=== PATIENT | male | born 1970 | race Caucasian/White ===

== ENCOUNTER 2019-10-24 07:23 | Emergency (ER) | payer SELFPAY ==
--- NOTE | ~2019-10-24 | CT_ITS ---
EXAMINATION: CT abdomen pelvis wo con DATE: 10/24/2019 08:08 INDICATION: Left flank pain TECHNIQUE: Computed tomography (CT) of the abdomen and pelvis was performed without intravenous contr ast. Automated exposure control and iterative reconstruction technique were employed. The dose-length product was 174.10 mGy-cm. COMPARISON: None FINDINGS: Calcified nodule in the left lower lobe consistent with old granulomatous disease. Minimal bibasilar atelectasis. Heart size is normal. No pericardial or pleural effusion. Liver, gallbladder, spleen, pa ncreas, bilateral adrenal glands and kidneys are normal. No hydronephrosis or renal stones at the [facility]. Multiple small calcifications in the pelvis bilaterally which appear to extend along the iliac arteries most likely atherosclerotic. There are few additional phleboliths in the pelvis. No definiti ve calcific a cyst along the course of the ureters which are unable to be definitively identified maryann ng much of their course. Normal appendix. No bowel obstruction. Bladder is normal. No free intraperit hernandez gas or fluid. No pathologically enlarged abdominal or pelvic lymphadenopathy. IMPRESSION: 1. No acute intra-abdominal/pelvic process. Reviewed, dictated and finalized at location A. END TECHNICIAN
--- NOTE | 2019-10-24 07:39 | ED.ABDPAIN ---
HPI - Abdominal Pain General Chief Complaint: Abdominal Pain Stated Complaint: ?? kidney stone Time Seen by Provider: 10/24/19 07:28 History of Present Illness HPI narrative: Left flank pain since early this morning. Severe. Paroxysmal. Radiates into LUQ. Associated with mild dysuria and 2 episodes of vomiting. Had a similar episode last week, which resolved spontaneously. He has had kidney stones in the past which felt similar. No trauma, fever, diarrhea, hematuria. Related Data Allergies Allergy/AdvReac Type Severity Reaction Status Date / Time codeine Allergy Rash Verified 10/24/19 07:57 Penicillins Allergy Anaphylactic Verified 10/24/19 07:57 Shock Review of Systems Review of Systems: All systems reviewed & are unremarkable except as noted in HPI and below Constitutional: Constitutional: Denies chills and Denies fever(s) ENT: Denies dizziness Cardiovascular: Cardiovascular: Denies chest pain Respiratory: Respiratory: Denies dyspnea Gastrointestinal: Gastrointestinal: Reports abdominal pain, Denies constipation, Denies diarrhea and Reports vomiting Genitourinary: Genitourinary: Denies hematuria and Reports dysuria Musculoskeletal: Musculoskeletal: Reports back pain Neurologic: Denies weakness [facility] Past Medical History Medical History (Updated 10/24/19 @ 09:30 by Norm Jang MD) Kidney stone Social History Social History Gender identity (if verbalized by the patient): Male Exam Const: General: alert Nutritional Appearance: thin Orientation/consciousness: patient oriented x3 HENMT: Head: normal to inspection Resp: Effort & Inspection: normal respiratory effort Auscultation: clear to auscultation bilaterally Cardio: Rate: regular rate Rhythm: regular rhythm GI: GI Palp: Yes Soft to palpation and No Tenderness to palpation present (GI) Back/Spine/Pelvis: Back: CVA tenderness (left) Thoracic/Lumbar Spine: paraspinal muscle tenderness on the left in the mid lumbar Neuro: General: patient oriented x3 and moves all extremities Speech: normal speech Extrem: General: normal to inspection Course Vital Signs Vital signs: Vital Signs Temperature 36.4 C 10/24/19 07:40 Pulse Rate 61 10/24/19 07:40 Respiratory Rate 17 10/24/19 07:40 Blood Pressure 142/93 H 10/24/19 07:40 Pulse Oximetry 98 10/24/19 07:40 Temperature 36.4 C 10/24/19 07:40 Pulse Rate 62 10/24/19 09:41 Respiratory Rate 14 10/24/19 09:41 Blood Pressure 121/82 10/24/19 09:41 Pulse Oximetry 97 10/24/19 09:41 MDM - Abdominal Pain Lab Data Result diagrams: 10/24/19 08:00 10/24/19 08:00 Labs: Lab Results 10/24/19 10/24/19 10/24/19 Range/Units 08:00 08:00 08:17 WBC 10.8 H (4.5-10.0) K/mm3 RBC 5.20 (4.6-6.20) M/mm3 Hgb 14.4 (14.0-18.0) g/dL Hct 43.5 (42.0-52.0) % MCV 83.7 (80-100) fl MCH 27.7 (26-34) pg MCHC 33.1 (32-36) g/dl RDW 13.2 (11.5-14.5) % Plt Count 269 (150-375) k/mm3 MPV 10.7 H (7.4-10.4) fl Immature Gran % (Auto) 0.2 (0-0.5) % Neut % (Auto) 64.7 (45.5-73.1) % Lymph % (Auto) 20.1 (18.3-44.2) % Bailey % (Auto) 10.9 H (2.6-8.5) % Eos % (Auto) 3.3 (0-4.4) % Baso % (Auto) 0.8 (0.2-1.2) % Lymph # (Auto) 2.17 (0.9-3.2) K/mm3 Bailey # (Auto) 1.2 H (0.1-0.6) K/mm3 Eos # (Auto) 0.4 H (0-0.3) K/mm3 Baso # (Auto) 0.1 (0.0-0.1) K/mm3 Abs Immat Gran (auto) 0.02 (0.00-0.031) K/mm3 Absolute Neuts (auto) 7.0 H (1.3-6.7) K/mm3 Absolute Nucleated RBC 0.0 (0.0-0.012) K/mm3 Nucleated RBC % 0.0 (0.0-0.2) % Sodium 142 (137-145) mmol/L Potassium 4.6 (3.4-5.0) mmol/L Chloride 106 (98-107) mmol/L Carbon Dioxide 23 (22-30) mmol/L BUN 15 (9-20) mg/dL Creatinine 0.80 (0.7-1.3) mg/dL Estim Creat Clear Calc 100 ml/min Estimated GFR > 60 (59 - ) Gl
[2019-10-24 07:40] VITALS: BP 142/93; PULSE 61; RESP 17; TEMP 36.4; O2SAT 98
[2019-10-24] MEDS: ONDANSETRON INJ 4 MG/2 ML VIAL IV PUSH (07:58)
[2019-10-24] MEDS: SODIUM CHLORIDE 0.9% IV 1,000 ML 999 ML IV CONT (07:59)
--- NOTE | 2019-10-24 08:01 | PC.NURSE ---
PT TO CT SCAN VIA STRETCHER
[2019-10-24 08:06] LABS: Basophils Absolute Auto 0.1 K/mm3 (0.0-0.1); Basophils Percent Auto 0.8 % (0.2-1.2); Eosinophils Absolute Auto 0.4 K/mm3 (0-0.3); Eosinophils Percent Auto 3.3 % (0-4.4); Hematocrit 43.5 % (42.0-52.0); Hemoglobin 14.4 g/dL (14.0-18.0); Immature Granulocyte Absolute 0.02 K/mm3 (0.00-0.031); Immature Granulocyte Percent A 0.2 % (0-0.5); Lymphocytes Absolute Auto 2.17 K/mm3 (0.9-3.2); Lymphocytes Percent Auto 20.1 % (18.3-44.2); Mean Corpuscular HGB Conc 33.1 g/dl (32-36); Mean Corpuscular Hemoglobin 27.7 pg (26-34); Mean Corpuscular Volume 83.7 fl (80-100); Mean Platelet Volume 10.7 fl (7.4-10.4); Monocytes Absolute Auto 1.2 K/mm3 (0.1-0.6); Monocytes Percent Auto 10.9 % (2.6-8.5); Neutrophils Percent Auto 64.7 % (45.5-73.1); Platelet Count Result 269 k/mm3 (150-375); Red Cell Distribution Width 13.2 % (11.5-14.5); White Blood Count 10.8 K/mm3 (4.5-10.0)
[2019-10-24 08:19] LABS: Blood Urea Nitrogen 15 mg/dL (9-20); Calcium 9.3 mg/dL (8.4-10.2); Carbon Dioxide 23 mmol/L (22-30); Chloride 106 mmol/L (98-107); Estimated CRCL calculation 100 ml/min; Estimated Glomerular Filt Rate > 60; Glucose 103 mg/dL (75-110); Potassium 4.6 mmol/L (3.4-5.0); Sodium 142 mmol/L (137-145)
[2019-10-24 08:36] LABS: Add Urine Microscopic? NO; Appearance Urine Clear (Clear); Bacteria Urine Trace /hpf; Bilirubin Urine Negative (Negative); Blood Urine Negative (Negative); Color Urine Yellow (Yellow); Glucose Urine UA Negative (Negative); Ketones Urine Negative (Negative); Leukocyte Esterase Ur Negative LEU/UL (Negative); Nitrate Urine Negative (Negative); Protein Urine Negative (Negative); RBC Urine 0-2 /hpf (0-2); Specific Grav Ur 1.017 (1.001-1.035); Urobilinogen Urine Negative mg/dL (<2.0); WBC Urine 0-3 /hpf
[2019-10-24] MEDS: CYCLOBENZAPRINE HCL 10 MG TABLET PO (08:54)
[2019-10-24] MEDS: KETOROLAC 30 MG/ML VIAL (*BKC) IV PUSH (08:54)
[2019-10-24 09:40] VITALS: BP 121/82; PULSE 62; RESP 14; O2SAT 97
[2019-10-24 09:41] VITALS: BP 121/82; PULSE 62; RESP 14; O2SAT 97
== END 2019-10-24 09:53 | disposition home or self-care (01) ==
PROVIDERS: Emergency Provider Emergency Medicine
DX: M54.5 Low back pain (principal); Z87.442 Personal history of urinary calculi
CPT/HCPCS: 36415; 74176; 80048; 81003; 85025; 96361; 96374; 96375; 99284; A9270; J1885; J2405; J3010; J7030